=== PATIENT | female | born 1970 | race Caucasian/White ===

== ENCOUNTER → 2018-09-12 | Outpatient (CLI) | payer OTHER ==
--- NOTE | 2018-09-12 15:07 | RADIOLOGY REPORT (SQ) ---
EXAM DESCRIPTION: LUMBAR SPINE COMPLETE COMPLETED DATE/TIME: 09/12/2018 2:20 pm REASON FOR STUDY: DDD,LUMBAR M51.36 OTHER INTERVERTEBRAL DISC DEGENERATION, LUMBAR REGION COMPARISON: 05/22/2015 NUMBER OF VIEWS: Five views including obliques. TECHNIQUE: AP, lateral, oblique, and sacral radiographic images acquired of the lumbar spine. LIMITATIONS: None. FINDINGS: MINERALIZATION: Normal. SEGMENTATION: Normal. No transitional anatomy. ALIGNMENT: Normal. VERTEBRAE: Maintained height. No fracture or worrisome bone lesion. DISCS: Mild to moderate disc space narrowing at L4-5 with minimal anterior osteophytes. POSTERIOR ELEMENTS: Pedicles and facets are intact. No pars defect or posterior arch defects. HARDWARE: None in the spine. PARASPINAL SOFT TISSUES: Normal. PELVIS: Intact as visualized. No fractures or worrisome bone lesions. SI joints intact. OTHER: No other significant finding. IMPRESSION: 1. Mild to moderate disc space narrowing at L4-5. 2. No acute osseous findings. TECHNICAL DOCUMENTATION: JOB ID: [id number]- All Rights Reserved Reading location - IP/workstation name: [email or web address]
== END ==
LOC: OD 14:02
PROVIDERS: ATTEND Family Medicine
DX: M51.36 Other intervertebral disc degeneration, lumbar region (principal)
CPT/HCPCS: 72110

== ENCOUNTER 2019-06-27 11:20 | Day surgery (SDC) | payer OTHER ==
[2019-06-27 06:34] LABS: ABSOLUTE EOSINOPHILS # (AUTO) 0.1 10^3/uL (0.0-0.6); ABSOLUTE LYMPHOCYTES (AUTO) 3.2 10^3/uL (0.5-4.7); ABSOLUTE MONOCYTES (AUTO) 0.5 10^3/uL (0.1-1.4); ABSOLUTE NEUT (AUTO) 3.1 10^3/uL (1.7-8.2); BASOPHILS % (AUTO) 0.5 % (0-2); EOSINOPHILS % (AUTO) 0.8 % (0-6); HEMATOCRIT 39.4 % (36.0-47.0); HEMOGLOBIN 13.2 g/dL (12.0-15.5); LYMPHOCYTES % (AUTO) 46.2 % (13-45); MEAN CORPUSCULAR HEMOGLOBIN 29.7 pg (27.0-33.4); MEAN CORPUSCULAR HGB CONC 33.5 g/dL (32.0-36.0); MEAN CORPUSCULAR VOLUME 89 fl (80-97); MONOCYTES % (AUTO) 6.8 % (3-13); PLATELET COUNT 249 10^3/uL (150-450); RED BLOOD COUNT 4.45 10^6/uL (3.72-5.28); RED CELL DISTRIBUTION WIDTH 12.9 % (11.5-14.0); SEGMENTED NEUTROPHILS % (AUTO) 45.7 % (42-78); TOTAL CELLS COUNTED % (AUTO) 100 %; WHITE BLOOD COUNT 6.8 10^3/uL (4.0-10.5)
[2019-06-27 06:35] LABS: APPEARANCE,URINE SLIGHTLY-CLOUDY; BILIRUBIN,URINE NEGATIVE (NEGATIVE); COLOR,URINE YELLOW; GLUCOSE, URINE NEGATIVE (NEGATIVE); KETONES,URINE NEGATIVE (NEGATIVE); LEUKOCYTE ESTERASE,URINE NEGATIVE (NEGATIVE); NITRITE,URINE NEGATIVE (NEGATIVE); PROTEIN,URINE NEGATIVE (NEGATIVE); UROBILINOGEN,URINE NEGATIVE mg/dL (<2.0)
[~2019-06-27 11:20] MED LIST: ACETAMINOPHEN 1,000 MG/100 ML RTUPB IV ONE; DIPHENHYDRAMINE HCL 50 MG/ML VIAL IV PRN; ESTROGENS,CONJUGATED 0.625 MG/1 GM 30 GM TUBE PV PRN; FENTANYL CITRATE INJ/PF 100 MCG/2 ML AMPUL IV PRN; FENTANYL CITRATE INJ/PF 100 MCG/2 ML AMPUL ONE; HYDROMORPHONE HCL INJ/PF 2 MG/ML AMPULE ONE; LIDOCAINE 1%/EPINEPHRINE INJ 20 ML VIAL ONE; MEPERIDINE HCL/PF INJ 25 MG/1 ML DISP.SYRIN IV PRN; MIDAZOLAM 2 MG/2 ML INJ ONE; MORPHINE SULFATE 10 MG/ML INJ IV PRN; ONDANSETRON HCL INJ/PF 4 MG/2 ML SDV IV PRN; OXYCODONE-ACETAMINOPHEN 5-325 MG TABLET PO PRN; PROMETHAZINE HCL INJ 25 MG/1 ML VIAL IV PRN; PROPOFOL INJ 200 MG/20 ML VIAL IV ONE
[2019-06-27] MEDS ORDERED: IBUPROFEN 800 MG TABLET PO PRN (11:32)
[2019-06-27] MEDS ORDERED: OXYCODONE-ACETAMINOPHEN 5-325 MG TABLET PO PRN (11:33)
[2019-06-27] MEDS ORDERED: MORPHINE SULFATE 10 MG/ML INJ IM PRN (11:34)
--- NOTE | 2019-06-27 14:17 | Operative Report ---
Operative Report DATE OF SURGERY: 06/27/19 PREOPERATIVE DIAGNOSIS: vaginal prolapse, pelvic pain POSTOPERATIVE DIAGNOSIS: Same OPERATION: Uterosacral suspension with anterior and posterior repair SURGEON: EDUARDO BONDS 1ST FORESTRY ADVISER: ILDA PHELAN 2ND [place]: MADDISON BRAY ANESTHESIA: GA TISSUE REMOVED OR ALTERED: vaginal mucosa COMPLICATIONS: none ESTIMATED BLOOD LOSS: 50 cc INTRAOPERATIVE FINDINGS: Gradce 3 vaginal prolapse PROCEDURE: Patient was taken operating room prepared and draped in normal sterile fashion in dorsolithotomy position [facility]. Posterior vaginal mucosa was grasped with 2 Allises in the midline and to find the vaginal cuff apex mucosa was then injected with approximately 10 cc of lidocaine with epi. Scored using a 15 blade and the mucosa was dissected away from the rectovaginal peritoneum using Metzenbaums. The sacral bone was located on the patient's right. Sacral ligament just below it device was then deployed into the uterosacral ligament. It was affixed to the posterior repair apex. The posterior repair was completed dissecting the mucosa adequately on both sides and 3 bridge sutures of 2-0 Vicryl the rectovaginal peritoneal defect vaginal mucosa was trimmed and the anchor stitch was tied down it was then closed with an 0 Vicryl runner. Then turned to the anterior portion of the case where the anterior vaginal mucosa was grasped in the midline and once again injected with lidocaine with epi and scored in the midline using a 15 blade. The mucosa was then dissected away from the vesicovaginal peritoneal using Metzenbaums and blunt dissection as needed. Once an adequate defect was created 3 bridge sutures of 2-0 chromic were placed over the vesicovaginal peritoneal. This vaginal mucosa was trimmed and the defect was closed with 0 Vicryl runner. Packing of Kerlix with Premarin cream was then placed. Kristine was taken to recovery in stable condition. The needle counts were correct x2
[2019-06-27] MEDS ORDERED: ONDANSETRON HCL INJ/PF 4 MG/2 ML SDV ONE (14:24)
[2019-06-27] MEDS ORDERED: SUCCINYLCHOLINE CHLORIDE INJ 200 MG/10 ML VIAL ONE (14:24)
[2019-06-27] MEDS ORDERED: ROCURONIUM BROMIDE INJ 50 MG/5 ML VIAL IV ONE (14:24)
[2019-06-27] MEDS ORDERED: DEXAMETHASONE SOD PHOSPHATE INJ 4 MG/1 ML VIAL ONE (14:24)
[2019-06-27] MEDS ORDERED: KETOROLAC TROMETHAMINE 60 MG/2 ML SDV ONE (14:24)
[2019-06-27] MEDS ORDERED: HYDROCODONE/ACETAMINOPHEN 7.5-325 MG TABLET PO PRN (17:50)
[2019-06-27] MEDS ORDERED: KETOROLAC TROMETHAMINE INJ/PF 30 MG/1 ML SDV IV SCH (18:00)
[2019-06-28 03:58] VITALS: BP 98/62
--- NOTE | 2019-06-28 07:16 | PDOC DISCHARGE SUMMARY ---
General - Admit/Disc Date/PCP Admission Date/Primary Care Provider: 06/27/19 11:20 DIANE HERRERA, DO Discharge Date: 06/28/19 - Discharge Diagnosis (1) Vaginal vault prolapse Is this a current diagnosis for this admission?: Yes (2) Vaginal vault prolapse after hysterectomy Is this a current diagnosis for this admission?: Yes (3) Pelvic pain Is this a current diagnosis for this admission?: Yes - Additional Information Resuscitation Status: Full Code Discharge Diet: As Tolerated Discharge Activity: Activity As Tolerated, Balance Activity w/Rest, No Driving, Energy Conservation, No Lifting Over 10 Pounds, No Lifting/Push/Pulling, Pelvic Rest, No tub bath Prescriptions: Acetaminophen with Codeine [Tylenol #3 Tablet] 1 each PO Q4HP PRN #30 tablet PRN Reason: Ibuprofen [Motrin 800 mg Tablet] 800 mg PO Q8HP PRN #60 tablet PRN Reason: Home Medications: No Home Medications 09/20/11 Acetaminophen with Codeine [Tylenol #3 Tablet] 1 each PO Q4HP PRN #30 tablet 06/28/19 Ibuprofen [Motrin 800 mg Tablet] 800 mg PO Q8HP PRN #60 tablet 06/28/19 History of Present Illness History of Present Illness: ANIYAH MAHER is a 48 year old female Hospital Course Hospital Course: underwent USS with A&P repair. No complications post operatively. doing well. voiding and tolerating a regular diet Physical Exam - Physical Exam Vital Signs: Temp Pulse Resp BP Pulse Ox 98.2 F 64 16 98/62 L 99 06/28/19 03:56 06/28/19 03:56 06/28/19 03:56 06/28/19 03:56 06/28/19 03:56 Intake & Output 06/27/19 06/28/19 06/29/19 06:59 06:59 06:59 Intake Total 0 2380 Output Total 2175 Balance 0 205 Weight 72.57 kg 72.5 kg General appearance: PRESENT: no acute distress, cooperative GI/Abdominal exam: PRESENT: soft Result Laboratory Results: 06/27/19 06:20 Plan Discharge Plan: discharge home with scheduled folow up with Dr. Barbour Time Spent: Less than 30 Minutes Acute Heart Failure - Is this a Heart Failure Patient?: No
== END 2019-06-28 08:02 | disposition home or self-care (01) ==
LOC: OROUT 11:20 → 2N 11:20 → INTOOBSV 11:20 → UNDOADMOB 11:20 → 2N 11:20 → UNDODISOB 06-28 08:02 → OROUT 06-28 08:02
PROVIDERS: ATTEND Obstetrics & Gynecology
DX: N81.10 Cystocele, unspecified (principal); R10.2 Pelvic and perineal pain; Z01.818 Encounter for other preprocedural examination
CPT/HCPCS: 36415; 85025; 81001; 00942; 57260; J2250; J3490 ×3; J1100; J1885 ×2; J1170; J0330; J2405; J2704; J0131; 942; J3010